=== PATIENT | female | born 1990 | race Caucasian/White ===

== ENCOUNTER 2021-04-20 04:43 | Emergency (ER) | payer OTHER, SELFPAY ==
[2021-04-20 04:50] VITALS: BP 125/106; PULSE 80; RESP 16; TEMP 36.6; O2SAT 97
[2021-04-20] MEDS: KETOROLAC 30 MG/ML VIAL (*BKC) IM (05:09)
--- NOTE | 2021-04-20 05:16 | ED.URI ---
HPI - URI/Sore Throat General Chief Complaint: Upper Respiratory Infection Stated Complaint: strep throat Time Seen by Provider: 04/20/21 04:50 Source: patient History of Present Illness HPI Narrative: Patient presents with concern for strep throat. She reports she has had strep throat before her symptoms feel similar to her prior episode. She reports she has had a sore throat for the past 2 days pain is achy, constant, radiating to her left jaw worse with swallowing. She denies fevers she reports mild cough which where she is a smoker and has always had a cough. She denies any shortness of breath. She feels like there is some swelling on the left side of her neck. Reports her fianc? has similar symptoms Related Data Allergies Allergy/AdvReac Type Severity Reaction Status Date / Time Penicillins Allergy Unknown Verified 04/20/21 05:08 Review of Systems Review of Systems: CONSTITUTIONAL: Denies fever, chills, or sweats. EYES: Denies visual changes, redness, or discharge. ENT: Denies rhinorrhea, congestion, or otalgia. CARDIOVASCULAR: Denies chest pain, palpitations, or edema. RESPIRATORY: Denies cough or dyspnea. GASTROINTESTINAL: Denies abdominal pain, nausea, vomiting, or diarrhea. GENITOURINARY: Denies dysuria or hematuria. SKIN: Denies rash or itching. MUSCULOSKELETAL: Denies back pain, joint pain, or myalgia. NEUROLOGIC: Denies headache, numbness, dizziness, or weakness. PSYCHIATRIC: Denies anxiety or depression. All systems reviewed & are unremarkable except as noted in HPI and below Exam Narrative: GENERAL: Well-appearing, well-nourished, and in no acute distress. HEAD: Normocephalic, atraumatic. EYES: PERRLA and EOMI. ENT: Nares clear, no rhinorrhea or epistaxis. Mucous membranes moist. Tonsillar swelling and tonsillar erythema noted there is no exudates no uvular deviation NECK: Supple. No masses. Submandibular lymphadenopathy in anterior chain lymphadenopathy noted on the left CHEST: Clear to auscultation. No respiratory distress. No wheezes rales or rhonchi HEART: Regular rate and rhythm. No murmur heard. Normal peripheral pulses. EXTREMITIES: Normal range of motion. No edema. SKIN: Warm, dry, no rash. NEURO: No focal deficits. Alert and oriented x3. PSYCH: Normal mood and affect. Course Reevaluation(s) Reevaluation #1: Patient is resting comfortably patient tested positive for strep she is appropriate for outpatient antibiotics. Patient comfortable outpatient plan. Date: 04/20/21 Time: 05:20 Vital Signs Vital signs: Vital Signs Temperature 36.6 C 04/20/21 04:50 Pulse Rate 80 04/20/21 04:50 Respiratory Rate 16 04/20/21 04:50 Blood Pressure 125/106 H 04/20/21 04:50 Pulse Oximetry 97 04/20/21 04:50 Temperature 36.6 C 04/20/21 04:50 Pulse Rate 77 04/20/21 05:55 Respiratory Rate 16 04/20/21 05:55 Blood Pressure 121/61 04/20/21 05:55 Pulse Oximetry 99 04/20/21 05:55 MDM - URI/Sore Throat MDM Narrative Medical decision making narrative: H&P as above, vss, pt looks clinically well, exam without airway compromise or uvular deviation, labs with a positive rapid strep, additional labs/img considered, symptomatic relief available as needed, patient treated with Toradol on reevaluation pt continues to looks clinically well. Suspect strep pharyngitis, dns severe sepsis, airway compromise, peritonsillar abscess. plan to tx/monitor as op w/ pcm f/u findings/plan discussed with pt, pt agree/comfortable with plan, return precautions given Lab Data Attestation: I reviewed the patient's lab results. Labs: Strep Screen Positive Group A Strep *(Reference Range: Negative)* Discharge Plan Discharge Clinical Impression: Acute streptococcal pharyngitis Patient Disposition: Home, Self-Care Condition: Improved Instructions: Antibiotic Form, Strep Throat (ED) Additional Instructions: Please return if your symptoms wors
[2021-04-20 05:55] VITALS: BP 121/61; PULSE 77; RESP 16; O2SAT 99
== END 2021-04-20 05:59 | disposition home or self-care (01) ==
LOC: ANHED 05:42
PROVIDERS: Emergency Provider Emergency Medicine; PCP Physician Assistant
DX: J02.0 Streptococcal pharyngitis (principal); F17.200 Nicotine dependence, unspecified, uncomplicated
CPT/HCPCS: 87880; 96372; 99283; J1885

== ENCOUNTER 2023-01-23 19:29 | Emergency (ER) | payer OTHER, SELFPAY ==
--- NOTE | 2023-01-23 19:34 | ED.DENTAL ---
HPI - Dental/Oral General Chief complaint: Dental/Oral Stated complaint: Dental Pain Time Seen by Provider: 01/23/23 19:35 Source: patient Mode of arrival: ambulatory Limitations: no limitations History of Present Illness HPI Narrative: Patient is a 32-year-old female who presents with right lower dental pain that started yesterday. 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 Patient does not have a dentist at this time. Reports tooth has been decayed and is now painful to eat. Denies any better taste mouth, difficulty swallowing or swelling. Related Data Allergies Allergy/AdvReac Type Severity Reaction Status Date / Time Penicillins Allergy Unknown Verified 01/23/23 19:43 Review of Systems Review of Systems: All systems reviewed & are unremarkable except as noted in HPI and below Constitutional: Constitutional: Denies body ache(s), Denies fever(s), Denies headache(s), Denies malaise and Denies weakness Eyes: Eyes: Denies loss of vision ENT: Denies otalgia, Reports facial pain (jaw), Denies headache(s), Denies nasal discharge, Denies sinus pain and Denies sore throat Cardiovascular: Cardiovascular: Denies chest pain, Denies irregular heart rhythm and Denies dyspnea Respiratory: Respiratory: Denies dyspnea Gastrointestinal: Gastrointestinal: Denies abdominal pain, Denies melena, Denies hematochezia, Denies diarrhea, Denies nausea and Denies vomiting Musculoskeletal: Musculoskeletal: Denies back pain, Denies myalgias and Denies arthralgias Integumentary/Breasts: Skin/Breast: Denies pruritus and Denies rash Neurologic: Denies headache(s), Denies loss of vision and Denies weakness Psychiatric: Psychiatric: Reports no additional psychiatric complaints PMFSH Comments At time of signature, agree with nursing past medical, surgical, social and family history. There is no relevant family history pertinent to the presenting complaint. Exam Const: General: cooperative, healthy appearing, comfortable, no acute distress and well nourished Nutritional Appearance: well nourished Orientation/consciousness: patient oriented x3 Limitations: no limitations HENMT: Head: normal to inspection, normocephalic and atraumatic Ears: hearing grossly normal bilaterally, external ears normal, TM's normal bilaterally and mastoids normal bilaterally Face/Nose/Sinus: Normal external nose present, normal facial exam and face symmetric Face and sinus: normal facial exam and face symmetric Mouth: Yes Normal oral and palatal mucosa present, Yes lip normal, Yes tongue normal, Yes Normal salivary glands and ducts present and Yes moist mucous membranes Teeth and gingiva: abnormal tooth and associated gingiva (Tooth 31) lower right second molar other (Decayed tooth) and poor dentition Teeth image: 1. Tooth decay. No surrounding erythema, swelling or drainage. No obvious drainable abscess Eyes: General: appearance normal, both eyes and all related structures Alignment and Position: alignment normal and position normal Periorbital: periorbital findings normal Eyelids: eyelids normal Pupils: Equal, round and reactive pupils present EOM: EOMs intact bilaterally Neck: Neck: normal visual inspection, full ROM, no lymphadenopathy and supple Chest: Chest palpation & inspection: normal inspection of the chest Resp: Effort & Inspection: normal respiratory effort and able to speak in complete sentences Auscultation: clear to auscultation bilaterally Cardio: Rate: regular rate Rhythm: regular rhythm Heart sounds: S1 normal heart sound present and S2 normal heart sound present GI: Inspection: normal to inspection Skin: General skin exam: normal color and no rashes or lesions noted Neuro: General: patient oriented x3 and moves all extremities Cranial nerves: Yes Equal, round and reactive pupils present Speech: normal speech Gait exam (Neuro): Normal gait present
[2023-01-23 19:44] VITALS: BP 138/71; PULSE 109; RESP 20; TEMP 36.5; O2SAT 100
== END 2023-01-23 20:03 | disposition home or self-care (01) ==
PROVIDERS: Emergency Provider Nurse Practitioner Family; PCP Physician Assistant
DX: K04.7 Periapical abscess without sinus (principal)
CPT/HCPCS: 99213; G0463